=== PATIENT | female | born 1980 | race Asian ===

== ENCOUNTER 2016-05-18 03:30 | Inpatient (IN) | payer SELFPAY ==
[~2016-05-18] VITALS: Ht 152.4 cm; Wt 69.9 kg
[2016-05-18] MEDS ORDERED: LACTATED RINGERS 1,000 ML IV SCH (03:40)
[2016-05-18] MEDS ORDERED: AMPICILLIN 2,000 MG in NACL 0.9% MINI-BAG PLUS 100 ML IV ONE (03:40)
[2016-05-18] MEDS ORDERED: OXYTOCIN 10 UNITS/ML VIAL IM ONE (03:40)
[2016-05-18] MEDS ORDERED: OXYTOCIN 10 UNITS/ML VIAL ONE (03:50)
[2016-05-18] MEDS ORDERED: OXYTOCIN 20 UNITS/LR PREMIX 1,000 ML IV ONE (03:50)
[2016-05-18] MEDS ORDERED: ROPIVACAINE 0.2%/NS PREMIX 250 ML EPI ONE (04:26)
[2016-05-18 04:33] LABS: BASOPHILS % (AUTO) 0.4 % (0.0-2.0); EOSINOPHILS # (AUTO) 0.1 K/uL (0-0.4); HEMATOCRIT 39.2 % (36-48); HEMOGLOBIN 12.9 g/dL (12.0-16.0); LYMPHOCYTES # (AUTO) 1.5 K/uL (2.5-16.5); LYMPHOCYTES % (AUTO) 13.9 % (20.5-51.1); MEAN CORPUSCULAR HEMOGLOBIN 31 pg (27-31); MEAN CORPUSCULAR HGB CONC 33 g/dL (33-37); MEAN CORPUSCULAR VOLUME 93 fL (80-94); MONOCYTES # (AUTO) 0.7 K/uL (0.8-1.0); NEUTROPHILS # (AUTO) 8.3 K/uL (1.8-7.7); NEUTROPHILS % (AUTO) 77.7 % (42.2-75.2); PLATELET COUNT (AUTO) 153 K/uL (140-450); RED BLOOD CELL COUNT(AUTO) 4.22 MIL/uL (4.20-5.40); RED CELL DISTRIBUTION WIDTH 12.7 % (11.6-13.7); WHITE BLOOD COUNT (AUTO) 10.7 K/uL (4.8-10.8)
[2016-05-18] MEDS ORDERED: fentaNYL 0.05 MG/ML VIAL ONE (04:37)
[2016-05-18] MEDS ORDERED: AMPICILLIN 2,000 MG VIAL ONE (04:55)
[2016-05-18] MEDS ORDERED: HYDROcodone/APAP 5/325 MG 1 TAB TAB PO PRN (06:50)
[2016-05-18] MEDS ORDERED: WITCH HAZEL 40 PAD PACKAGE TP PRN (06:50)
[2016-05-18] MEDS ORDERED: BENZOCAINE/MENTHOL 20%-0.5% 60 GM CAN TP PRN (06:50)
[2016-05-18] MEDS ORDERED: IBUPROFEN 800 MG TAB PO PRN (06:50)
[2016-05-18] MEDS ORDERED: METHYLERGONOVINE 0.2 MG/ML AMP IM PRN (06:50)
[2016-05-18] MEDS ORDERED: TEMAZEPAM 15 MG CAP PO PRN (06:50)
[2016-05-18] MEDS ORDERED: OXYTOCIN 10 UNITS/ML VIAL IM PRN (06:50)
[2016-05-18] MEDS ORDERED: oxyCODONE/APAP 5/325 MG 1 TAB TAB PO PRN (06:50)
[2016-05-18] MEDS ORDERED: MEASLES, MUMPS, AND RUBELLA 1 VIAL SQVAC PRN (06:50)
[2016-05-18 06:51] VITALS: BP 100/57
[2016-05-18] MEDS ORDERED: INFLUENZA VIRUS VACCINE QUAD 0.5 ML SYR IMVAC SCH (06:55)
[2016-05-18] MEDS ORDERED: OXYTOCIN 20 UNITS/LR PREMIX 1,000 ML IV SCH (07:20)
--- NOTE | 2016-05-18 07:55 | NUR ---
PATIENT HAS BEEN SCREENED AND CATEGORIZED LOW NUTRITION RISK. PATIENT WILL BE SEEN WITHIN 7 DAYS OF ADMISSION. 05/24/[address]
[2016-05-18] MEDS ORDERED: AMPICILLIN 1,000 MG in NACL 0.9% MINI-BAG PLUS 50 ML IV SCH (09:00)
[2016-05-18] MEDS ORDERED: AMPICILLIN 1,000 MG VIAL ONE (09:38)
[2016-05-18] MEDS ORDERED: DOCUSATE SOD/SENNA 50/8.6 MG 1 TAB PO SCH (21:00)
[2016-05-19 05:39] LABS: HEMATOCRIT 32.6 % (36-48); HEMOGLOBIN 10.6 g/dL (12.0-16.0)
[2016-05-19 15:07] LABS: HEPATITIS B SURFACE ANTIGEN Negative (Negative)
== END 2016-05-20 15:45 | disposition home or self-care (01) | DRG 775 ==
LOC: MLD 03:30 → MFCC 17:25
PROVIDERS: ADMIT Obstetrics & Gynecology; ATTEND Obstetrics & Gynecology
PROC: 10E0XZZ Delivery of Products of Conception, External Approach (ICD-10-PCS; principal; 2016-05-18)
PROC: 00HU33Z Insertion of Infusion Device into Spinal Canal, Percutaneous Approach (ICD-10-PCS; 2016-05-18)
PROC: 3E0R3CZ (ICD-10-PCS; 2016-05-18)
PROC: 3E0234Z Introduction of Serum, Toxoid and Vaccine into Muscle, Percutaneous Approach (ICD-10-PCS; 2016-05-19)
DX: O80 Encounter for full-term uncomplicated delivery (principal); Z3A.37 37 weeks gestation of pregnancy; Z37.0 Single live birth; Z23 Encounter for immunization
CPT/HCPCS: 36415; 51702; 59409; 85018; 85025; 86592; 86762; 86886; 86900; 86901; 87340; J0290; J2590; J2795; J3010; J7120